=== PATIENT | male | born 1945 | race Caucasian/White ===

== ENCOUNTER 2021-12-22 11:05 | Inpatient (IN) | payer MEDICARE ==
[~2021-12-22] VITALS: Ht 177.8 cm; Wt 99.8 kg
[2021-12-22 12:21] LABS: BASOPHIL 0.9 % (0-2); EOSINOPHIL 0.2 % (0-7); HCT > 60.0 % (42.0-52.0); LYMPHOCYTE 19.6 % (15-48); MCH 29.4 pg (25.0-31.0); MCHC 31.4 g/dL (32.0-36.0); MCV 93.5 fL (78.0-100.0); NEUTROPHIL 62.6 % (41-80); NRBC 0; PLT 112 K/uL (150-400); RBC 6.95 M/uL (4.70-6.00); RDW 17.6 % (11.5-14.0); WBC 5.4 K/uL (4.0-10.5)
[2021-12-22 12:38] LABS: HGB 20.4 g/dl (13.2-18.0)
[2021-12-22 12:43] LABS: ALBUMIN 3.4 g/dL (3.4-5.0); BILIRUBIN - TOTAL 2.2 mg/dL (0.2-1.0); BUN/CREAT RATIO (CALC) 20.4 RATIO; CREATININE 1.62 mg/dL (0.67-1.17); GLOBULIN (CALCULATION) 3.1 g/dL; POTASSIUM 4.3 mmol/L (3.5-5.1); TOTAL PROTEIN 6.5 g/dL (6.4-8.2)
[2021-12-22 13:05] LABS: INR 1.37 (0.9-1.2); PROTHROMBIN TIME 16.4 SECONDS (11.9-13.9); PTT 32.1 SECONDS (24.9-34.6)
[2021-12-22 13:19] LABS: CORONAVIRUS 2019 SARS-COV-2 NEGATIVE (NEGATIVE); INFLUENZA A NAA NEGATIVE (NEGATIVE)
[2021-12-22] MEDS ORDERED: LATANOPROST2.5 ML EYEBOTH (16:08)
[2021-12-22] MEDS ORDERED: KETOROLAC TROME10 ML EYEBOTH (16:09)
[2021-12-22] MEDS ORDERED: TIMOLOL MALEATE15 M1 EYEBOTH (16:10)
[2021-12-22] MEDS ORDERED: AMIODARONE HCL200 M1 PO (16:11)
[2021-12-22] MEDS ORDERED: BUMETANIDE1 MG PO (16:12)
[2021-12-22] MEDS ORDERED: POTASSIUM CHLO10 ME1 PO (16:14)
[2021-12-22] MEDS ORDERED: DIGOXIN125 MCG PO (16:15)
[2021-12-22] MEDS ORDERED: METOPROLOL SUCC50 MG PO (16:15)
[2021-12-22] MEDS ORDERED: ANORO ELLIPTA1 EACH INH (16:16)
[2021-12-22] MEDS ORDERED: ATORVASTATIN CA10 MG PO (16:17)
[2021-12-22] MEDS ORDERED: GLIMEPIRIDE1 MG PO (16:17)
[2021-12-22] MEDS ORDERED: COZAAR100 MG PO (16:18)
[2021-12-22] MEDS ORDERED: METOLAZONE2.5 MG PO (16:19)
[2021-12-22] MEDS ORDERED: FEOSOL325 MG PO (16:19)
[2021-12-22] MEDS ORDERED: DUONEB 2.5-0.5M1 AMP INH (16:21)
[2021-12-22] MEDS ORDERED: ENTRESTO 97 MG1 EACH PO (18:13)
== END 2021-12-22 23:30 | disposition other institution (70) | DRG 291 ==
LOC: FER 11:05 → FMS 14:05
PROVIDERS: Emergency Medicine; ADMIT Allergy & Immunology Allergy
DX: I11.0 Hypertensive heart disease with heart failure (principal); J96.01 Acute respiratory failure with hypoxia; J96.02 Acute respiratory failure with hypercapnia; N17.9 Acute kidney failure, unspecified; J44.1 Chronic obstructive pulmonary disease with (acute) exacerbation; R18.8 Other ascites; I50.9 Heart failure, unspecified; Z20.822 Contact with and (suspected) exposure to COVID-19; R00.1 Bradycardia, unspecified; I45.9 Conduction disorder, unspecified; D75.1 Secondary polycythemia; I25.10 Atherosclerotic heart disease of native coronary artery without angina pectoris; I44.7 Left bundle-branch block, unspecified; I27.20 Pulmonary hypertension, unspecified; I25.5 Ischemic cardiomyopathy; E11.9 Type 2 diabetes mellitus without complications; E78.5 Hyperlipidemia, unspecified; I48.91 Unspecified atrial fibrillation; R91.1 Solitary pulmonary nodule; F17.200 Nicotine dependence, unspecified, uncomplicated; Z80.9 Family history of malignant neoplasm, unspecified; Z79.02 Long term (current) use of antithrombotics/antiplatelets; Z79.899 Other long term (current) drug therapy
CPT/HCPCS: 36415; 36600; 71045; 71275; 80053; 82668; 82803; 83880; 84484; 85025; 85610; 85730; 93005; 94640; 94664; 94762; 96372; 99195; J0360; J1650; J1940; J2543; J7120; J7512; Q9967; U0002

== ENCOUNTER 2022-03-01 13:06 | Inpatient (IN) | payer MEDICARE ==
[~2022-03-01] VITALS: Ht 177.8 cm; Wt 118.0 kg
[~2022-03-01 13:06] MED LIST: AMIODARONE HCL200 M1 PO; ANORO ELLIPTA1 EACH INH; ATORVASTATIN CA10 MG PO; BUMETANIDE1 MG PO; COZAAR100 MG PO; DIGOXIN125 MCG PO; DUONEB 2.5-0.5M1 AMP INH; ENTRESTO 97 MG1 EACH PO; FEOSOL325 MG PO; GLIMEPIRIDE1 MG PO; KETOROLAC TROME10 ML EYEBOTH; LATANOPROST2.5 ML EYEBOTH; METOLAZONE2.5 MG PO; METOPROLOL SUCC50 MG PO; POTASSIUM CHLO10 ME1 PO; TIMOLOL MALEATE15 M1 EYEBOTH
[2022-03-01 14:55] LABS: BASOPHIL 0.7 % (0-2); EOSINOPHIL 0.7 % (0-7); HCT 58.3 % (42.0-52.0); HGB 18.2 g/dl (13.2-18.0); LYMPHOCYTE 14.8 % (15-48); MCH 29.7 pg (25.0-31.0); MCHC 31.2 g/dL (32.0-36.0); MCV 95.1 fL (78.0-100.0); MONOCYTE 9.6 % (0-12); MPV 10.2 fL (6.0-9.5); NEUTROPHIL 73.7 % (41-80); NRBC 0; PLT 99 K/uL (150-400); RBC 6.13 M/uL (4.70-6.00); RDW 23.2 % (11.5-14.0); WBC 4.4 K/uL (4.0-10.5)
[2022-03-01 15:03] LABS: INR 1.14 (0.9-1.2); PROTHROMBIN TIME 14.3 SECONDS (11.9-13.9); PTT 28.3 SECONDS (24.9-34.6)
[2022-03-01 15:16] LABS: BILIRUBIN 1+ mg/dL (NEGATIVE); BLOOD NEGATIVE Ery/uL (NEGATIVE); CLARITY CLEAR (CLEAR); COLOR YELLOW (YELLOW); GLUCOSE (U) NORMAL (NORMAL); LEUKOCYTES TRACE Leu/uL (NEGATIVE); NITRITE NEGATIVE (NEGATIVE); PROTEIN NEGATIVE (NEGATIVE)
[2022-03-01 15:24] LABS: BACTERIA TRACE
[2022-03-01 15:25] LABS: AMORPHOUS URATES CRYSTALS TRACE
[2022-03-01 15:26] LABS: ALBUMIN 2.9 g/dL (3.4-5.0); BILIRUBIN - TOTAL 2.9 mg/dL (0.2-1.0); CKMB 3.3 ng/mL (0.0-3.6); GLOBULIN (CALCULATION) 3.5 g/dL; POTASSIUM 4.4 mmol/L (3.5-5.1); TOTAL PROTEIN 6.4 g/dL (6.4-8.2)
[2022-03-01 15:34] LABS: LACTIC ACID 1.5 mmol/L (0.4-1.9)
[2022-03-01] MEDS ORDERED: HYDRALAZINE25 MG PO (17:37)
[2022-03-01] MEDS ORDERED: LUMIGAN5 ML OU ×2 (17:48→17:51)
[2022-03-01] MEDS ORDERED: PREDNISOLONE ACE5 ML EYELF (17:49)
--- NOTE | 2022-03-01 19:10 | NUR ---
PICTURES TAKEN OF BUTTOCK /COCCYX WOUND UNABLE TO PRINT, DILEEP IS TRYING TO PRINT. NOTIFIED INCOMING NURSE. PICS WOULD NEED TO BE RETAKEN IF UNABLE TO PRINT
[2022-03-02 06:25] LABS: INR 1.15 (0.9-1.2); PROTHROMBIN TIME 14.4 SECONDS (11.9-13.9)
[2022-03-02 06:26] LABS: BASOPHIL 0.5 % (0-2); EOSINOPHIL 1.1 % (0-7); HCT 54.1 % (42.0-52.0); HGB 16.3 g/dl (13.2-18.0); LYMPHOCYTE 17.2 % (15-48); MCH 29.1 pg (25.0-31.0); MCHC 30.1 g/dL (32.0-36.0); MCV 96.4 fL (78.0-100.0); MONOCYTE 12.6 % (0-12); MPV 11.1 fL (6.0-9.5); NEUTROPHIL 68.1 % (41-80); NRBC 0; PLT 88 K/uL (150-400); RBC 5.61 M/uL (4.70-6.00); RDW 22.7 % (11.5-14.0); WBC 4.4 K/uL (4.0-10.5)
[2022-03-02 07:08] LABS: ALBUMIN 2.5 g/dL (3.4-5.0); BILIRUBIN - TOTAL 1.9 mg/dL (0.2-1.0); BUN/CREAT RATIO (CALC) 23.3 RATIO; CREATININE 1.03 mg/dL (0.67-1.17); MAGNESIUM 1.8 mg/dL (1.8-2.4); POTASSIUM 4.2 mmol/L (3.5-5.1); TOTAL PROTEIN 5.5 g/dL (6.4-8.2)
--- NOTE | 2022-03-02 15:00 | NUR ---
03/02/22 Mr. Rankin lives at home. He has an adult son who also lives in the home. He has: standard walker, 3in1, s. chair and cane. Will monitor for 02 and HH needs.
[2022-03-03 07:44] LABS: BASOPHIL 0.7 % (0-2); EOSINOPHIL 0.7 % (0-7); HCT 57.8 % (42.0-52.0); HGB 17.3 g/dl (13.2-18.0); LYMPHOCYTE 13.1 % (15-48); MCH 29.8 pg (25.0-31.0); MCHC 29.9 g/dL (32.0-36.0); MCV 99.7 fL (78.0-100.0); MONOCYTE 10.6 % (0-12); MPV 10.4 fL (6.0-9.5); NEUTROPHIL 74.4 % (41-80); NRBC 0; RDW 22.6 % (11.5-14.0); WBC 4.4 K/uL (4.0-10.5)
[2022-03-03 07:45] LABS: PLT 92 K/uL (150-400)
[2022-03-03 08:03] LABS: ALBUMIN 2.7 g/dL (3.4-5.0); BILIRUBIN - TOTAL 2.1 mg/dL (0.2-1.0); BUN/CREAT RATIO (CALC) 23.1 RATIO; CREATININE 0.91 mg/dL (0.67-1.17); GLOBULIN (CALCULATION) 3.4 g/dL; POTASSIUM 4.7 mmol/L (3.5-5.1); TOTAL PROTEIN 6.1 g/dL (6.4-8.2)
[2022-03-04 06:28] LABS: BUN/CREAT RATIO (CALC) 25.6 RATIO; CREATININE 0.9 mg/dL (0.67-1.17); POTASSIUM 4.5 mmol/L (3.5-5.1)
--- NOTE | 2022-03-04 06:49 | NUR ---
O2 SATURATION DROPPED AT 2 AM 86-89% INCREASED 02 TO 4L O2 SATURATION SLOWLY INCREASED TO 90%, dR. LACKEY ORDERED STAT ABG, CHEST XRAY, AND HIGH FLOW, CO2 80.6- PUT BIPAP ON INSTEAD OF HIGH FLOW ORDERED, BIPAP SETTINGS 16/8, RATE 22, FIO2 35%, 92 %, AT 0615 CLEMENT IN RESP CALLED CRITICAL ABG PH 7.275, CO2 81.6, PO2 76,1, 02 SAT 93.0- BIPAP SETTINGS CHANGED TO 20/10, R24, FIO2 35%
[2022-03-04 09:08] LABS: HBSAG SCREEN Negative (Negative); HCV AB 0.1 (0.0-0.9); HEP A AB, IGM Negative (Negative); HEP B CORE AB, IGM Negative (Negative)
[2022-03-05 05:47] LABS: BASOPHIL 0.5 % (0-2); EOSINOPHIL 1.7 % (0-7); HCT 54.6 % (42.0-52.0); HGB 16.4 g/dl (13.2-18.0); LYMPHOCYTE 16.5 % (15-48); MCH 29.8 pg (25.0-31.0); MCV 99.1 fL (78.0-100.0); MONOCYTE 12.5 % (0-12); MPV 10.6 fL (6.0-9.5); NEUTROPHIL 68.3 % (41-80); NRBC 0; RBC 5.51 M/uL (4.70-6.00); RDW 21.3 % (11.5-14.0); WBC 4.2 K/uL (4.0-10.5)
[2022-03-05 05:52] LABS: PLT 88 K/uL (150-400)
[2022-03-05 06:08] LABS: BUN/CREAT RATIO (CALC) 28.6 RATIO; CREATININE 0.84 mg/dL (0.67-1.17); MAGNESIUM 1.8 mg/dL (1.8-2.4); POTASSIUM 4.4 mmol/L (3.5-5.1)
[2022-03-05] MEDS ORDERED: COREG 6.25MG6.25 MG PO (09:43)
[2022-03-05] MEDS ORDERED: BUMETANIDE1 MG PO (09:43)
[2022-03-05] MEDS ORDERED: ALDACTONE25 MG PO (09:52)
--- NOTE | 2022-03-05 12:06 | NUR ---
03/05/22 Dr. Marcos consulted and recommended Hospice services. Pt and his daughter, Yuki Rankin are in agreement. Hosp[facility], [facility], will meet with the family at 1:30. Clinicals to included order for 02 at 4L have been faxed to [facility] at [facility].
== END 2022-03-05 16:00 | disposition hospice, home (50) | DRG 291 ==
LOC: FER 13:06 → FTCU 16:17
PROVIDERS: Allergy & Immunology Allergy; Emergency Medicine; Internal Medicine Cardiovascular Disease; ADMIT Internal Medicine
PROC: 5A09357 Assistance with Respiratory Ventilation, Less than 24 Consecutive Hours, Continuous Positive Airway Pressure (ICD-10-PCS; principal; 2022-03-04)
DX: I11.0 Hypertensive heart disease with heart failure (principal); I50.33 Acute on chronic diastolic (congestive) heart failure; J96.01 Acute respiratory failure with hypoxia; J96.02 Acute respiratory failure with hypercapnia; J44.1 Chronic obstructive pulmonary disease with (acute) exacerbation; N17.9 Acute kidney failure, unspecified; L03.116 Cellulitis of left lower limb; L03.115 Cellulitis of right lower limb; C7A.1 Malignant poorly differentiated neuroendocrine tumors; Z66 Do not resuscitate; Z20.822 Contact with and (suspected) exposure to COVID-19; K74.69 Other cirrhosis of liver; D69.6 Thrombocytopenia, unspecified; D75.1 Secondary polycythemia; I25.10 Atherosclerotic heart disease of native coronary artery without angina pectoris; Z95.1 Presence of aortocoronary bypass graft; I25.2 Old myocardial infarction; E78.5 Hyperlipidemia, unspecified; E11.9 Type 2 diabetes mellitus without complications; D50.9 Iron deficiency anemia, unspecified; F17.200 Nicotine dependence, unspecified, uncomplicated; E88.09 Other disorders of plasma-protein metabolism, not elsewhere classified; I27.20 Pulmonary hypertension, unspecified; Z28.311 Partially vaccinated for COVID-19; Z79.01 Long term (current) use of anticoagulants; I48.0 Paroxysmal atrial fibrillation; E66.9 Obesity, unspecified; Z68.36 Body mass index [BMI] 36.0-36.9, adult
CPT/HCPCS: 36415; 36600; 71045; 80048; 80053; 80074; 80202; 81001; 82553; 82803; 82962; 83036; 83605; 83735; 83880; 84145; 84443; 84484; 85025; 85610; 85730; 87040; 87088; 93005; 93970; 94640; 94660; 94760; 96374; 96375; 97162; 97166; 97530-GP; 97535; J0295; J1650; J1940; J3370; J7040; U0002